=== PATIENT | female | born 1940 | race Caucasian/White ===

== ENCOUNTER 2017-12-14 17:21 | Inpatient (IN) | payer MEDICARE, OTHER ==
[~2017-12-14] VITALS: Ht 167.6 cm; Wt 72.6 kg
--- OUTSIDE RECORDS SUMMARY | 2017-12-14 17:27 | XMS REPORT ---
Author Author ARABELLA CURTIS [facility] eClinicalWorks Address Unknown Phone Unavailable Care Team Providers Care Advisory Intern Name Role Phone ARABELLA CURTIS CP Unavailable Allergies No Known Allergies Problems Problem Type Condition ICD-9 Code Onset Dates Condition Status Problem Seizure, NOS 780.39 Active Problem LBP [Low back pain] 724.2 Active Problem Common migraine without mention of intractable migraine 346.10 Active Problem Fatigue 780.79 Active Problem Insomnia 780.52 Active Problem Myofascial pain 729.0 Active Problem Unspecified vitamin D deficiency 268.9 Active Problem Joint pain, shoulder 719.41 Active Problem LONG-TERM USE MEDS NEC V58.69 Active Problem Osteoporosis 733.00 Active Problem 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
--- OUTSIDE RECORDS SUMMARY | 2017-12-14 17:28 | XMS REPORT ---
Author Author ARABELLA CURTIS [facility] eClinicalWorks Address Unknown Phone Unavailable Care Team Providers Care Grain Oilseed Or Pasture Farm Manager Name Role Phone ARABELLA CURTIS CP Unavailable Allergies No Known Allergies Problems Problem Type Condition Code Onset Dates Condition Status Problem HTN [Hypertension] 401.9 Active Problem Trochanteric bursitis, right hip M70.61 Active Problem Abnormal immunological finding in serum, unspecified R76.9 Active Problem Spinal stenosis, lumbar region M48.06 Active Problem Disorder of bone density and structure, unspecified M85.9 Active Problem Rheumatism, unspecified M79.0 Active Problem Polymyalgia rheumatica M35.3 Active Problem 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
--- OUTSIDE RECORDS SUMMARY | 2017-12-14 17:28 | XMS REPORT ---
Author Author IBETH BENZ Organization eClinicalWorks Address Unknown Phone Unavailable Care Team Providers Care Single Spindle Screw Machine Operator Name Role Phone IBETH BENZ CP Unavailable Allergies No Known Allergies Problems Problem Type Condition Code Onset Dates Condition Status Problem Seizure, [...] Active Problem Elevated ESR 790.1 Active Medications Medication Code System Code Instructions Start Date End Date Status Dosage loratadine [facility] [address] 10 mg orally once a day December 06, 2014 1 tab(s) Results No Known Results Summary Purpose eClinicalWorks Submission
--- OUTSIDE RECORDS SUMMARY | 2017-12-14 17:28 | XMS REPORT ---
Author Author ARABELLA CURTIS eClinical[employer] Address Unknown Phone Unavailable Care Team Providers Care Branch Lending Manager Name Role Phone ARABELLA CURTIS CP Unavailable Allergies, Adverse Reactions, Alerts Substance Reaction Event Type penicillin rash Drug Allergy Lomotil GI upset Drug Allergy Flexeril numbness Drug Allergy Problems Problem Type Condition Code Onset Dates Condition Status Assessment Rheumatism, unspecified M79.0 Active Problem HTN [Hypertension] 401.9 Active Assessment Spinal stenosis, lumbar region M48.06 Active Problem Trochanteric bursitis, right hip M70.61 Active Problem Abnormal immunological finding in serum, unspecified R76.9 Active Problem Spinal stenosis, lumbar region M48.06 Active Problem Disorder of bone density and structure, unspecified M85.9 Active Problem Rheumatism, unspecified M79.0 Active Problem Polymyalgia rheumatica M35.3 Active Problem Other skilled nursing (current) drug therapy Z79.899 Active Assessment Abnormal immunological finding in serum, unspecified R76.9 Active Assessment Disorder of bone density and structure, unspecified M85.9 Active Assessment Polymyalgia rheumatica M35.3 Active Assessment 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 Assessment Trochanteric bursitis, right hip M70.61 Active Medications Medication Code System Code Instructions Start Date End Date Status Dosage Depakote NDC 942 500 mg orally daily at bedtime December 27, 2014 1 tab(s ) Fish Oil NDC 0 1000 mg orally twice daily 1 capsule Os-Amadou 500 with D NDC 55006 500 mg-200 intl units orally 2 times a day Aug 21, 2010 1 tab(s) Viibryd NDC 488916 40 mg orally once a day by [place] 1 tab(s) Vasotec NDC 3418 5 TAKE ONE TABLET BY MOUTH EVERY DAY Probulin NDC 0 twice daily NEXIUM NDC 14249 40 mg orally once a day 1 cap(s) Tylenol Arthritis NDC 94358 500 mg orally PRN every 4-6 hrs for severe pain maximum 4 per day Aug 28, 2012 one Vyvanse NDC 033751 70 mg orally once a day (in the morning) 1 cap( s) multivitamin NDC 14852 Multiple Vitamins orally once a day 1 tab(s ) Feosol NDC 5086 325 mg orally twice a day January 27, 2014 1 tab(s) Vitamin D3 NDC 4871 1000 intl units orally once a day Aug 27, 2011 1 tab(s) Biofreeze NDC 039237 4% applied topically 2 times a day Jun 06, 2015 1 [place]im[place] clonazepam NDC 88997 0.5 mg orally prn hs January 16, 2015 1 Procedures Procedure Coding System Code Date Office Visit, estab pt, Level 4 CPT-4 73475 Jun 06, 2015 Vital Signs Date/Time: Jun 06, 2015 BMI 24.93 Index Weight 151 lbs Height 65.25 in Pain Scale - 0-10 Blood Pressure Diastolic 68 mm Hg Blood Pressure Systolic 122 mm Hg Results Name Result Date Reference Range Unit Abnormality Flag CBC WO DIFF Summary Purpose eClinicalWorks Submission
--- OUTSIDE RECORDS SUMMARY | 2017-12-14 17:28 | XMS REPORT ---
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
--- OUTSIDE RECORDS SUMMARY | 2017-12-14 17:28 | XMS REPORT ---
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
--- OUTSIDE RECORDS SUMMARY | 2017-12-14 17:28 | XMS REPORT ---
Author Author ARABELLA CURTIS [employer]ClinicalWorks Address Unknown Phone Unavailable Care Team Providers Care Tax Services Manager Name Role Phone ARABELLA CURTIS CP Unavailable Allergies No Known Allergies Problems Problem Type Condition Code Onset Dates Condition Status Problem Rheumatism, unspecified M79.0 Active Problem Other jail (current) drug therapy Z79.899 Active Problem Disorder of bone density and structure, unspecified M85.9 Active Problem HTN [Hypertension] 401.9 Active Problem Other specified disorders of bone density and structure, other site M85.88 Active Problem Other specified soft tissue disorders M79.89 Active Problem Other specified abnormal immunological findings in serum R76.8 Active Problem Abnormal immunological finding in serum, unspecified R76.9 Active Problem Polymyalgia rheumatica M35.3 Active Problem Spinal stenosis, lumbar region M48.06 Active Problem Trochanteric bursitis, right hip M70.61 Active Medications No Known Medications Results No Known Results Summary Purpose eClinicalWorks Submission
--- OUTSIDE RECORDS SUMMARY | 2017-12-14 17:28 | XMS REPORT ---
Author Author ARABELLA CURTIS [facility] eClinicalWorks Address Unknown Phone Unavailable Care Team Providers Care Aircraft Engineer Name Role Phone ARABELLA CURTIS CP [...] Instructions Start Date End Date Status Dosage clonazepam [facility] 57064 0.5 mg orally prn hs January 16, 2015 1 Results No Known Results Summary Purpose eClinicalWorks Submission
--- OUTSIDE RECORDS SUMMARY | 2017-12-14 17:28 | XMS REPORT ---
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 Problem Trochanteric bursitis, right hip M70.61 Active Problem Abnormal immunological finding in serum, unspecified R76.9 Active Problem Spinal stenosis, lumbar region M48.06 Active Problem Disorder of bone density and structure, unspecified M85.9 Active Problem Rheumatism, unspecified M79.0 Active Problem Polymyalgia rheumatica M35.3 Active Problem Other rn long term care (current) drug therapy Z79.899 Active Assessment Rheumatism, unspecified M79.0 Active Assessment Disorder of bone density and structure, unspecified M85.9 Active Assessment Spinal stenosis, lumbar region M48.06 Active Assessment Other rn long term care (current) drug therapy Z79.899 Active Assessment Abnormal immunological finding in serum, unspecified R76.9 Active Medications Medication Code System Code Instructions Start Date [place] [address] Multiple Vitamins orally once a day 1 tab(s ) Vasotec ND 3418 5 TAKE ONE TABLET BY MOUTH EVERY DAY Viibryd ND 133871 40 mg orally once a day by [place] 1 tab(s) Tylenol Arthritis NDC 41763 500 mg orally PRN every 4-6 hrs for severe pain maximum 4 per day Aug 28, 2012 one Probulin NDC 0 twice daily Vyvanse ND 335580 70 mg orally once a day (in the morning) 1 cap( s) Biofreeze ND 043980 4% applied topically 2 times a day Jun 06, 2015 1 [place] Vitamin D3 [place] [address] 1000 intl units orally once a day Aug 27, 2011 1 tab(s) clonazepam NDC 36181 0.5 mg orally prn hs January 16, 2015 1 Os-Amadou 500 with D NDC 98658 500 mg-200 intl units orally 2 times a day Aug 21, 2010 1 tab(s) Depakote NDC 942 500 mg orally daily at bedtime December 27, 2014 1 tab(s ) Feosol NDC 5086 325 mg orally twice a day January 27, 2014 1 tab(s) Fish Oil NDC 0 1000 mg orally twice daily 1 capsule NEXIUM NDC 72133 40 mg orally once a day 1 cap(s) Procedures Procedure Coding System Code Date Office Visit, estab pt, Level 4 CPT-4 57665 Sep 11, 2015 Vital Signs Date/Time: Sep 11, 2015 BMI 25.46 Index Weight 154.2 lbs Height 65.25 in Pain Scale . 0-10 Blood Pressure Diastolic 70 mm Hg Blood Pressure Systolic 112 mm Hg Results Name Result Date Reference Range Unit Abnormality Flag CBC WITH DIFF PROTOCOL ----BASOPHIL PERCENT 1 [id number] 0-2 % ----EOSINOPHIL PERCENT 3 [id number] 0-6 % ----LYMPHOCYTES, ABSOLUTE 2.1 [id number] 1.0-4.8 10*3/uL ----NEUTROPHILS, ABSOLUTE 4.5 [id number] 1.55-7.13 10*3/uL ----RDWCV 16.7 [id number] 11.5-14.5 % H ----EOSINOPHILS, ABSOLUTE 0.2 [id number] 0.0-0.65 10*3/uL ----PLATELET COUNT 309 [id number] 150-400 10*3/uL ----MONOCYTES, ABSOLUTE 0.5 [id number] 0.4-1.08 10*3/uL ----MCHC 33 25263738 31-37 g/dL ----MCH 27 [id number] 26-34 pg ----MCV 83 [id number] 81-99 fL ----NEUTROPHIL PERCENT 62 [id number] 36-66 % ----DIFF TYPE AUTOMATED DIFF [id number] ----MONOCYTE PERCENT 6 49655410 1-10 % ----LYMPHOCYTE PERCENTT 29 69366847 24-44 % ----BASOPHILS, ABSOLUTE 0.0 [id number] 0.0-0.11 10*3/uL ----WBC 7.3 20150911 4.3-10.8 10*3/uL ----RBC 4.70 20150911 4.20-5.40 10*6/uL ----HGB 12.8 20150911 12.0-16.0 g/dL ----HCT 39.0 20150911 37-47 % Summary Purpose eClinicalWorks Submission
--- OUTSIDE RECORDS SUMMARY | 2017-12-14 17:29 | XMS REPORT | Continuity of Care Document ---
Author Author [facility] Organization [facility] Address Unknown Phone Unavailable Allergies Active Description Code Type Severity Reaction Onset Reported/Identified Relationship to Patient Clinical Status Yes PENICILLINS 26 Drug Class N/A N/A 02/23/2014 Yes LATEX 27344 DRUG INGREDI N/A Dermatitis 08/20/2017 08/20/2017 Medications Medication Packaging Start Date Stop Date Route Dosage Sig enalapril maleate (VASOTEC) 5 mg tablet -- TAKE ONE TABLET BY MOUTH EVERY DAY tablet 01/30/2017 divalproex (DEPAKOTE ER) 500 mg 24 hr tablet -- TAKE ONE TABLET BY MOUTH DAILY tablet 06/20/2017 enalapril maleate (VASOTEC) 5 mg tablet -- TAKE ONE TABLET BY MOUTH DAILY tablet 10/29/2017 Problems Date Dx Coded Attending Type Code Diagnosis Diagnosed By 06/06/2015 KIRSTEN ARABELLA R A M35.3 Polymyalgia rheumatica 06/06/2015 LAURENATRE, ARABELLA R A R76.9 Abnormal immunological finding in serum, unspecified 06/06/2015 LAURENATRE ARABELLA R A M35.3 Polymyalgia rheumatica 06/06/2015 ATRE, ARABELLA R A R76.9 Abnormal immunological finding in serum, unspecified 07/04/2015 JOAQUIN MINER V [id number] Follow-up JOAQUIN MINER 09/11/2015 ATRE ARABELLA R A M06.4 Inflammatory polyarthropathy 09/11/2015 ATRE, ARABELLA R A M48.06 Spinal stenosis, lumbar region 09/11/2015 ATRE, ARABELLA R A R76.9 Abnormal immunological finding in serum, unspecified 09/11/2015 CHRIS CURTISJAY R A Z79.899 Other intermediate designer (current) drug therapy 09/11/2015 ATRE ARABELLA R A M06.4 Inflammatory polyarthropathy 09/11/2015 ATRE, ARABELLA R A M48.06 Spinal stenosis, lumbar region 09/11/2015 ATRE, ARABELLA R A R76.9 Abnormal immunological finding in serum, unspecified 09/11/2015 ATRE, ARABELLA R A Z79.899 Other intermediate designer (current) drug therapy 09/11/2015 LAURENATRE, ARABELLA R A M06.4 Inflammatory polyarthropathy 09/11/2015 ATRE, ARABELLA R A M48.06 Spinal stenosis, lumbar region 09/11/2015 ATRE, ARABELLA R A R76.9 Abnormal immunological finding in serum, unspecified 09/11/2015 ATRE, ARABELLA R A Z79.899 Other intermediate designer (current) drug therapy 12/12/2015 ATRE, ARABELLA R A M48.06 Spinal stenosis, lumbar region 12/12/2015 ATRE, ARABELLA R A M79.89 Other specified soft tissue disorders 12/12/2015 ATRE, ARABELLA R A R76.8 Other specified abnormal immunological findings in serum 11/18/2016 ATRE, ARABELLA R WORKING I10 Essential (primary) hypertension 11/18/2016 [facility], ARABELLA R WORKING M35.3 Polymyalgia rheumatica ([facility]) 11/18/2016 ATRE, ARABELLA R WORKING R76.8 Other specified abnormal immunological findings in serum 11/18/2016 ATRE, ARABELLA R WORKING Z79.899 Other intermediate designer (current) drug therapy 03/21/2017 ATRE, ARABELLA R WORKING M35.3 Polymyalgia rheumatica ([facility]) 08/01/2017 WORKING G89.29 Other chronic pain 08/01/2017 WORKING M17.0 Bilateral primary osteoarthritis of knee 08/01/2017 WORKING M35.3 Polymyalgia rheumatica ([facility]) 08/01/2017 WORKING M54.5 Low back pain 08/01/2017 WORKING M85.88 Other specified disorders of bone density and structure, other site 08/01/2017 WORKING R76.8 Other specified abnormal immunological findings in serum 08/01/2017 WORKING Z79.899 Other intermediate designer (current) drug therapy 08/08/2017 ATRE, ARABELLA R WORKING M35.3 Polymyalgia rheumatica ([facility]) 08/08/2017 ATRE, ARABELLA R WORKING R76.8 Other specified abnormal immunological findings in serum 08/08/2017 ARABELLA CURTIS WORKING Z79.899 Other prison (current) drug therapy Procedures Code Description Performed By Performed On ABC CBC WO DIFF 06/06/2015 CREAP CREATININE 06/06/2015 DSDNA DOUBLE STRANDED DNA ANTIBODY 06/06/2015 ESR ERYTHROCYTE SEDIMENTATION RATE 06/06/2015 CBC CBC WITH DIFF 09/11/2015 CREAP CREATININE WITH EGFR 09/11/2015 DSDNA DOUBLE STRANDED DNA ANTIBODY 09/11/2015 ESR ERYTHROCYTE SEDIMENTATION RATE 09/11/2015 UACR URINALYSIS REFLEX TO CULTURE 09/11/2015 CBC CBC WITH DIFF 09/11/2015 CREAP CREATININE WITH EGFR 09/11/2015 DSDNA DOUBLE STRANDED DNA ANTIBODY 09/11/2015 ESR ERYTHROCYTE SEDIMENTATION RATE 09/11/2015 UACR URINALYSIS REFLEX TO CULTURE 09/11/2015 ABC CBC WO DIFF 12/12/2015 CREAP CREATININE WITH EGFR 12/12/2015 DSDNA DOUBLE STRANDED DNA ANTIBODY 12/12/2015 ESR ERYTHROCYTE SEDIMENTATION RATE 12/12/2015 Results Test Result Range CBC WITH DIFF - 01/09/15 15:35 WBC 7.6 10*3/uL 4.3-10.8 RBC 4.58 10*6/uL 4.20-5.40 HGB 12.5 g/dL 12.0-16.0 HCT 37.8 % 37-47 MCV 83 fL 81-99 MCH 27 pg 26-34 MCHC 33 g/dL 31-37 PLATELET COUNT 313 10*3/uL 150-400 RDWCV 15.5 % 11.5-14.5 DIFF TYPE AUTOMATED DIFF NEUTROPHIL % 63 % 36-66 LYMPHOCYTE % 28 % 24-44 MONOCYTE % 8 % 1-10 EOSINOPHIL % 1 % 0-6 BASOPHIL % 0 % 0-2 ABS. NEUTROPHILS 4.7 10*3/uL 1.55-7.13 ABS. LYMPHOCYTES 2.1 10*3/uL 1.0-4.8 ABS. MONOCYTES 0.6 10*3/uL 0.4-1.08 ABS. EOSINOPHILS 0.1 10*3/uL 0.0-0.65 ABS. BASOPHILS 0.0 10*3/uL 0.0-0.11 ABSOLUTE NUCLEATED RBC 0.00 10*3/uL PERCENT NUCLEATED RBC 0 ERYTHROCYTE SEDIMENTATION RATE - 01/09/15 15:35 ERYTHROCYTE SEDIMENTATION RATE, AUTOMATED 16 mm/h 0-20 AST - 01/09/15 15:35 AST-SGOT 18 U/L 5-34 CREATININE - 01/09/15 15:35 CREATININE 0.9 mg/dL 0.6-1.1 GFR ESTIMATED NOT AFR/AM >60 GFR ESTIMATED IF AFR/AM >60 DOUBLE STRANDED DNA ANTIBODY - 01/09/15 15:35 DSDNA AB, IGG None Detected None Detected CBC WO DIFF - 06/06/15 15:16 WBC 6.6 10*3/uL 4.0-10.8 RBC 4.42 10*6/uL 4.20-5.40 HGB 11.9 g/dL 12.0-16.0 HCT 36.9 % 37-47 MCV 84 fL 81-99 MCH 27 pg 26-34 MCHC 32 g/dL 31-37 PLATELET COUNT 291 10*3/uL 150-400 RDWCV 15.6 % 11.5-14.5 CREATININE - 06/06/15 15:16 CREATININE 0.9 mg/dL 0.6-1.1 GFR ESTIMATED NOT AFR/AM >60 GFR ESTIMATED IF AFR/AM >60 ERYTHROCYTE SEDIMENTATION RATE - 06/06/15 15:16 ERYTHROCYTE SEDIMENTATION RATE, AUTOMATED 16 mm/h 0-20 DOUBLE STRANDED DNA ANTIBODY - 06/06/15 15:16 DSDNA AB, IGG None Detected None Detected OCCULT BLOOD X 3, STOOL - 06/25/15 00:01 OCCULT BLOOD, STOOL #1 negative OCCULT BLOOD, STOOL #2 Negative OCCULT BLOOD, STOOL #3 Negative CBC WITH AUTO DIFFERENTIAL - 08/31/15 12:05 BASOPHILS RELATIVE PERCENT 0.6 % 0.0-2.5 EOSINOPHILS RELATIVE PERCENT 1.3 % <=5.0 HEMATOCRIT 40.6 % 34.9-44.5 HEMOGLOBIN 13.0 g/dL 12.0-15.5 LYMPHOCYTES RELATIVE PERCENT 25.4 % 22.0-49.0 MEAN CORPUSCULAR HEMOGLOBIN 27.1 pg 26.0-34.0 MEAN CORPUSCULAR HEMOGLOBIN CONC 32.0 g/dL 31.0-37.0 MEAN CORPUSCULAR VOLUME 84.8 fL 81.6-98.3 MONOCYTES RELATIVE PERCENT 7.5 % 2.0-9.0 NEUTROPHILS RELATIVE PERCENT 65.2 % 40.0-75.0 PLATELET COUNT 296 10E9/L 150-450 RED BLOOD CELL COUNT 4.79 10E12/L 3.90-5.03 RED CELL DISTRIBUTION WIDTH 17.0 % 11.9-15.5 [id number] 7.1 10E9/L 3.5-10.5 1793967 1.80 10E9/L 0.90-2.90 1787082 0.50 10E9/L 0.30-0.90 2460379 0.10 10E9/L 0.05-0.50 6027238 4.60 10E9/L 1.70-7.00 7370943 0.00 10E9/L 0.00-0.30 CBC WITH AUTO DIFFERENTIAL - 01/09/16 14:27 BASOPHILS RELATIVE PERCENT 0.7 % 0.0-2.5 EOSINOPHILS RELATIVE PERCENT 1.7 % <=5.0 HEMATOCRIT 41.8 % 34.9-44.5 HEMOGLOBIN 13.4 g/dL 12.0-15.5 LYMPHOCYTES RELATIVE PERCENT 26.2 % 22.0-49.0 MEAN CORPUSCULAR HEMOGLOBIN 28.1 pg 26.0-34.0 MEAN CORPUSCULAR HEMOGLOBIN CONC 32.1 g/dL 31.0-37.0 MEAN CORPUSCULAR VOLUME 87.5 fL 81.6-98.3 MONOCYTES RELATIVE PERCENT 7.0 % 2.0-9.0 NEUTROPHILS RELATIVE PERCENT 64.4 % 40.0-75.0 PLATELET COUNT 326 10E9/L 150-450 RED BLOOD CELL COUNT 4.78 10E12/L 3.90-5.03 RED CELL DISTRIBUTION WIDTH 14.9 % 11.9-15.5 8638810 8.0 10E9/L 3.5-10.5 0131067 2.10 10E9/L 0.90-2.90 2565132 0.60 10E9/L 0.30-0.90 3360065 0.10 10E9/L 0.05-0.50 8419678 5.10 10E9/L 1.70-7.00 8853653 0.10 10E9/L 0.00-0.30 VITAMIN D2/D3 TOTAL - 01/09/16 14:27 VITAMIN D2/D3 TOTAL 35 ng/ml 30-100 URINALYSIS, REFLEX CULTURE IF NEEDED - 03/19/16 10:07 APPEARANCE Clear [none] BILIRUBIN UA Negative Negative COLOR Light-Yellow [none] GLUCOSE UA Negative Negative HEMOGLOBIN UA Negative Negative LEUKOCYTE ESTERASE UA Negative Negative NITRATE UA Negative Negative PH UA 8.0 5.0-8.0 PROTEIN UA Negative Negative RBC UA 0-3 0-3 SPECIFIC GRAVITY UA 1.007 1.003-1.030 UROBILINOGEN UA 0.2 mg/dL 0.2 WBC UA 0-3 /HPF 0-3 [id number] Negative Negative CBC WITH AUTO DIFFERENTIAL - 03/19/16 10:08 BASOPHILS RELATIVE PERCENT 0.6 % 0.0-2.5 EOSINOPHILS RELATIVE PERCENT 3.8 % <=5.0 HEMATOCRIT 39.0 % 34.9-44.5 HEMOGLOBIN 12.7 g/dL 12.0-15.5 LYMPHOCYTES RELATIVE PERCENT 25.8 % 22.0-49.0 MEAN CORPUSCULAR HEMOGLOBIN 28.3 pg 26.0-34.0 MEAN CORPUSCULAR HEMOGLOBIN CONC 32.7 g/dL 31.0-37.0 MEAN CORPUSCULAR VOLUME 86.5 fL 81.6-98.3 MONOCYTES RELATIVE PERCENT 7.7 % 2.0-9.0 NEUTROPHILS RELATIVE PERCENT 62.1 % 40.0-75.0 PLATELET COUNT 296 10E9/L 150-450 RED BLOOD CELL COUNT 4.51 10E12/L 3.90-5.03 RED CELL DISTRIBUTION WIDTH 14.8 % 11.9-15.5 4216488 7.2 10E9/L 3.5-10.5 3277308 1.90 10E9/L 0.90-2.90 7830007 0.60 10E9/L 0.30-0.90 5453348 0.30 10E9/L 0.05-0.50 9126432 4.50 10E9/L 1.70-7.00 9531148 0.00 10E9/L 0.00-0.30 TSH (REFLEX FREE T4 IF ABNORMAL) - 03/19/16 10:08 TSH 1.277 uIU/mL 0.400-4.000 CBC WITH DIFF - 11/18/16 14:45 WBC 9.59 10*3/uL 4.00-10.80 RBC 4.60 10*6/uL 4.20-5.40 HGB 13.2 g/dL 12.0-16.0 HCT 40.8 % 37.0-47.0 MCV 89 fL 81-99 MCH 29 pg 26.0-34.0 MCHC 32.4 g/dL 31.0-37.0 PLATELET COUNT 351 10*3/uL 150-400 RDWCV 14.5 % 11.5-14.5 DIFF TYPE AUTOMATED DIFF NEUTROPHIL % 68.9 % 36.0-66.0 LYMPHOCYTE % 21.4 % 24.0-44.0 MONOCYTE % 6.5 % 1.0-10.0 EOSINOPHIL % 2.4 % 0.0-6.0 BASOPHIL % 0.5 % 0.0-2.0 ABS. NEUTROPHILS 6.61 10*3/uL 1.55-7.13 ABS. LYMPHOCYTES 2.05 10*3/uL 1.00-4.80 ABS. MONOCYTES 0.62 10*3/uL 0.40-1.08 ABS. EOSINOPHILS 0.23 10*3/uL 0.00-0.65 ABS. BASOPHILS 0.05 10*3/uL 0.00-0.11 ABSOLUTE NUCLEATED RBC 0.00 10*3/uL 0.00 PERCENT NUCLEATED RBC 0.0 % 0.0 MPV 10.4 fL 9.4-12.3 RDW STANDARD DEVIATION 46.5 fL 36.4-46.3 GRANULOCYTE, IMMATURE, ABSOLUTE 0.0 10*3/uL 0.0-0.1 GRANULOCYTES, IMMATURE, PERCENT 0.3 % 0.0-0.5 ERYTHROCYTE SEDIMENTATION RATE - 11/18/16 14:45 ERYTHROCYTE SEDIMENTATION RATE, AUTOMATED 19 mm/h 0-20 COMPREHENSIVE METABOLIC PANEL - 11/18/16 14:45 POTASSIUM 4.5 mmol/L 3.5-5.1 CALCIUM 9.0 mg/dL 8.5-10.0 GLUCOSE 94 mg/dL 80-115 BUN 25 mg/dL 7-18 CREATININE 1.18 mg/dL 0.55-1.30 SODIUM 143 mmol/L 136-145 CHLORIDE 107 mmol/L 98-107 CO2 28 mmol/L 21-32 GFR ESTIMATED NOT AFR/AM 45 GFR ESTIMATED IF AFR/AM 54 ALT-SGPT 31 U/L 13-56 AST-SGOT 16 U/L 15-37 TOTAL PROTEIN,SERUM 7.2 g/dL 6.0-8.3 ALBUMIN 3.7 g/dL 3.4-5.0 ALKALINE PHOSPHATASE 84 U/L 45-117 TOTAL BILIRUBIN 0.4 mg/dL 0.2-1.0 ANION GAP 8 5-15 GLOBULIN, CALCULATED 3.5 g/dL A/G RATIO 1.1 ratio 1-1.8 ANTI-NUCLEAR AB, IGG SCREEN WITH REFLEX TO JESUSITA IFA TITER, DSDNA, SENIOR FOREMAN, MCKINNON, SSA, AND SSB ANTIBODI* - 11/18/16 14:45 ANTI-NUCLEAR ANTIBODY, IGG None Detected None Detected ERYTHROCYTE SEDIMENTATION RATE - 03/21/17 15:28 ERYTHROCYTE SEDIMENTATION RATE, AUTOMATED 18 mm/h 0-20 CBC WITH AUTO DIFFERENTIAL - 03/25/17 08:44 BASOPHILS RELATIVE PERCENT 1.0 % 0.0-2.5 EOSINOPHILS RELATIVE PERCENT 4.5 % <=5.0 HEMATOCRIT 44.2 % 34.9-44.5 HEMOGLOBIN 14.3 g/dL 12.0-15.5 LYMPHOCYTES RELATIVE PERCENT 27.8 % 22.0-49.0 MEAN CORPUSCULAR HEMOGLOBIN 29.0 pg 26.0-34.0 MEAN CORPUSCULAR HEMOGLOBIN CONC 32.4 g/dL 31.0-37.0 MEAN CORPUSCULAR VOLUME 89.7 fL 81.6-98.3 MONOCYTES RELATIVE PERCENT 7.3 % 2.0-9.0 NEUTROPHILS RELATIVE PERCENT 59.4 % 40.0-75.0 NUCLEATED RED BLOOD CELLS 0 /100 <=0 PLATELET COUNT 343 10E9/L 150-450 RED BLOOD CELL COUNT 4.93 10E12/L 3.90-5.03 RED CELL DISTRIBUTION WIDTH 14.2 % 11.9-15.5 7059864 7.2 10E9/L 3.5-10.5 6914198 1.99 10E9/L 0.90-2.90 2950359 0.52 10E9/L 0.30-0.90 8402734 0.32 10E9/L 0.05-0.50 1628541 4.25 10E9/L 1.70-7.00 6549663 0.07 10E9/L 0.00-0.30 9791544 0 % TSH (REFLEX FREE T4 IF ABNORMAL) - 03/25/17 08:44 TSH 2.642 uIU/mL 0.400-4.000 URINE CULTURE - 03/25/17 09:14 [id number] Sandy Count>07099 <713364 cfu/mL of at least 2 organisms suggestive of contamination CBC WITH DIFF - 08/08/17 11:42 WBC 6.52 10*3/uL 4.00-10.80 RBC 4.66 10*6/uL 4.20-5.40 HGB 13.1 g/dL 12.0-16.0 HCT 41.2 % 37.0-47.0 MCV 88 fL 81-99 MCH 28 pg 26.0-34.0 MCHC 31.8 g/dL 31.0-37.0 PLATELET COUNT 325 10*3/uL 150-400 RDWCV 14.0 % 11.5-14.5 DIFF TYPE AUTOMATED DIFF NEUTROPHIL % 62.0 % 36.0-66.0 LYMPHOCYTE % 26.2 % 24.0-44.0 MONOCYTE % 8.3 % 1.0-10.0 EOSINOPHIL % 2.6 % 0.0-6.0 BASOPHIL % 0.6 % 0.0-2.0 ABS. NEUTROPHILS 4.04 10*3/uL 1.55-7.13 ABS. LYMPHOCYTES 1.71 10*3/uL 1.00-4.80 ABS. MONOCYTES 0.54 10*3/uL 0.40-1.08 ABS. EOSINOPHILS 0.17 10*3/uL 0.00-0.65 ABS. BASOPHILS 0.04 10*3/uL 0.00-0.11 ABSOLUTE NUCLEATED RBC 0.00 10*3/uL 0.00 PERCENT NUCLEATED RBC 0.0 % 0.0 MPV 10.2 fL 9.4-12.3 RDW STANDARD DEVIATION 45.5 fL 36.4-46.3 GRANULOCYTE, IMMATURE, ABSOLUTE 0.02 10*3/uL 0.00-0.10 GRANULOCYTES, IMMATURE, PERCENT 0.3 % 0.0-0.5 ERYTHROCYTE SEDIMENTATION RATE - 08/08/17 11:42 ERYTHROCYTE SEDIMENTATION RATE, AUTOMATED 25 mm/h 0-20 DOUBLE STRANDED DNA ANTIBODY - 08/08/17 11:42 DSDNA AB, IGG None Detected None Detected Encounters ACCT No. Visit Date/Time Discharge Status Pt. Type Provider Facility Loc./Unit Complaint [id number] 03/21/2017 14:57:21 03/21/2017 23:59:59 [facility] Outpatient [facility] Medicine Clinic [facility] [id number] 03/07/2017 00:00:00 03/07/2017 23:59:59 CLS Outpatient [facility] - Neurology [facility] [id number] 01/29/2017 00:00:00 01/29/2017 23:59:59 CLS Outpatient [facility] Medicine [facility] [id number] 12/02/2016 00:00:00 12/02/2016 23:59:59 CLS Outpatient [facility] [id number] 11/28/2016 00:00:00 11/28/2016 23:59:59 CLS Outpatient [facility] Medicine [facility] [id number] 11/18/2016 14:10:18 11/18/2016 23:59:59 CLS Outpatient [facility] [id number] 10/28/2016 00:00:00 10/28/2016 23:59:59 CLS Outpatient [facility] [id number] 05/13/2016 12:54:53 05/13/2016 23:59:59 CLS Outpatient [facility] Neurology [facility] [id number] 03/11/2016 00:00:00 03/11/2016 23:59:59 CLS Outpatient [facility] Neurology [facility] [id number] 10/28/2017 00:00:00 10/28/2017 23:59:59 CLS Outpatient [facility] [id number] 10/28/2017 00:00:00 10/28/2017 23:59:59 CLS Outpatient [facility] [id number] 10/27/2017 00:00:00 10/27/2017 23:59:59 CLS Outpatient [facility] Medicine [facility] [id number] 08/26/2017 00:00:00 08/26/2017 23:59:59 CLS Outpatient [facility] Neurology [facility] [id number] 08/13/2017 00:00:00 08/13/2017 23:59:59 CLS Outpatient [facility] [id number] 08/01/2017 14:48:23 08/01/2017 23:59:59 CLS Outpatient [facility] Medicine [facility] [id number] 06/20/2017 00:00:00 06/20/2017 23:59:59 CLS Outpatient [facility] Medicine [facility] [id number] 03/21/2017 14:57:21 Document Registration [id number] 01/30/2017 08:18:14 Document Registration [id number] 11/18/2016 14:10:18 Document Registration [id number] 05/13/2016 12:54:53 Document Registration [id number] 12/02/2017 15:21:41 12/02/2017 23:59:59 CLS Outpatient KD SANTAMARIA [facility] EXPUR [id number] 08/20/2017 19:54:01 08/20/2017 23:59:59 CLS Outpatient [facility] URISHXR [id number] 08/20/2017 18:28:51 08/20/2017 23:59:59 CLS Outpatient KD SANTAMARIA [facility] EXPUR [id number] 08/06/2017 14:13:07 08/06/2017 23:59:59 CLS Outpatient [facility] HCOTXR [id number] 08/06/2017 12:31:47 08/06/2017 23:59:59 CLS Outpatient ALEJANDRO WESLEY [facility] [id number] 03/25/2017 08:39:28 03/25/2017 23:59:59 CLS Outpatient [facility] U29LA [id number] 03/24/2017 12:01:15 03/24/2017 23:59:59 CLS Outpatient CRISTIANA CAMP [facility] 901 [id number] 01/31/2017 09:40:01 01/31/2017 23:59:59 CLS Outpatient DANIELE YEPEZ [facility] KZOR [id number] 12/03/2016 10:27:24 12/03/2016 23:59:59 CLS Outpatient DANIELE YEPEZ [facility] KZOR [id number] 12/03/2016 10:19:00 12/03/2016 23:59:59 CLS Outpatient [facility] KZOR [id number] 11/29/2016 13:57:22 11/29/2016 23:59:59 CLS Outpatient [facility] 901XR [id number] 11/04/2016 13:53:09 11/04/2016 23:59:59 CLS Outpatient RADHA MONSALVE [place] [address] [id number] 10/14/2016 15:06:17 10/14/2016 23:59:59 CLS Outpatient [facility] [id number] 10/14/2016 15:04:35 10/14/2016 23:59:59 CLS Outpatient [facility] [id number] 09/18/2016 11:32:31 09/18/2016 23:59:59 CLS Outpatient WESLEY ALLEN [place] [address] [id number] 04/18/2016 10:50:24 04/18/2016 23:59:59 CLS Outpatient WESLEY ALLEN [place] [address] [id number] 03/22/2016 14:24:57 03/22/2016 23:59:59 CLS Outpatient CRISTIANA CAMP [place] [address] [id number] 03/19/2016 10:02:42 03/19/2016 23:59:59 CLS Outpatient [place] [address] [id number] 01/09/2016 14:23:22 01/09/2016 23:59:59 CLS Outpatient [place] [address] [id number] 01/03/2016 16:20:00 01/03/2016 23:59:59 CLS Outpatient [place] [address] [id number] 01/03/2016 15:53:15 01/03/2016 23:59:59 CLS Outpatient CRISTIANA CAMP [place] [address] [id number] 01/03/2016 14:07:08 01/03/2016 23:59:59 CLS Outpatient [facility] [id number] 11/15/2015 12:20:43 11/15/2015 23:59:59 CLS Outpatient FERMIN MICHAELS [facility] KZTHR [id number] 11/09/2015 12:41:19 11/09/2015 23:59:59 CLS Outpatient FERMIN MICHAELS [facility] KZTHR [id number] 08/31/2015 12:01:07 08/31/2015 23:59:59 CLS Outpatient [place] [address] [id number] 08/31/2015 10:58:39 08/31/2015 23:59:59 CLS Outpatient CRISTIANA CAMP [facility] 90 [id number] 07/10/2015 10:57:55 07/10/2015 23:59:59 CLS Outpatient [place] [address] [id number] 07/04/2015 14:49:26 07/04/2015 23:59:59 CLS Outpatient JOAQUIN MINER [facility] [id number] 11/03/2015 11:46:25 Document Registration [id number] 08/08/2017 11:34:41 08/08/2017 23:59:00 DIS Outpatient MHATRE, [facility] [id number] 03/21/2017 15:27:14 03/21/2017 23:59:00 DIS Outpatient MHATRE, [facility] [id number] 11/18/2016 14:43:46 11/18/2016 23:59:00 DIS Outpatient MHATRE, [facility] [id number] 12/12/2015 16:49:36 12/12/2015 23:59:00 DIS Outpatient MHATRE, [facility] FMWLAB [id number] 09/11/2015 15:52:48 09/11/2015 23:59:00 DIS Outpatient MHATRE, [facility] [id number] 06/06/2015 15:15:00 06/06/2015 23:59:00 DIS Outpatient MHATRE, [facility] [id number] 01/09/2015 15:24:50 01/09/2015 23:59:00 DIS Outpatient MHATRE, [facility] [id number] 12/29/2014 13:57:53 12/29/2014 23:59:00 DIS Outpatient ABI ALCALA MD [facility] [id number] 07/07/2014 13:38:35 07/07/2014 23:59:00 DIS Outpatient OMERO, [place] [facility] [id number] 05/24/2014 11:19:21 05/24/2014 23:59:00 DIS Outpatient SMITA RINALDI [place] [facility] [id number] 05/04/2014 15:47:29 05/04/2014 23:59:00 DIS Outpatient JUMANA [facility] [id number] 03/28/2014 10:37:31 03/28/2014 23:59:00 DIS Outpatient OMEROSHEKH KumariAR [facility] [id number] 02/23/2014 13:36:38 02/23/2014 23:59:00 DIS Outpatient CRISTIANA CAMP MD [facility] [id number] 02/02/2014 15:13:11 02/02/2014 23:59:00 DIS Outpatient TUYET [facility] [id number] 01/26/2014 11:40:43 01/26/2014 23:59:00 DIS Outpatient TUYET [facility] [id number] 12/29/2013 15:32:49 12/29/2013 23:59:00 DIS Outpatient JUMANA, [id number] 11/06/2017 07:15:58 ACT Document Registration
--- NOTE | 2017-12-14 17:44 | ED General ---
General Chief Complaint: Altered Mental Status Stated Complaint: LIGHT HEADED Source of Information: Patient, Family (son, rekha) Exam Limitations: Other (clinical condition) (JACQUE CARTER) History of Present Illness Date Seen by Provider: December 14, 2017 Time Seen by Provider: 17:28 Initial Comments The patient presents to the ER by private conveyance with her son with a chief complaint of acute confusion. She was driving down from [place] to see her son in [place], [place] and she called him because she was a little lost on the route and couldn't find a way at 11:30 this morning. He gave her some guidance and he thought that she sounded okay but he wasn't sure why she was in [facility] because that was quite a bit out of the way for her normal route. He says she has driven this route multiple times in the past come see him. She says that she felt perfectly fine this morning when she left. Police then found her on the side of the road where apparently she been sitting for several hours confused as to where she was in where she was going. The patient states she's had some sweats and chills today since getting on route but denies any dysuria, diarrhea or constipation, shortness of breath, chest pain, abdominal pain, ear pain or headache. She denies any significant medical history but she can't remember what medicines she is on or why. She cannot member her pharmacy. She is oriented to person and place but not time or situation. She says she's had a cough that is been nonproductive and denies smoking, drinking or using recreational drugs. (JACQUE CARTER) Timing/Duration: 12 Hours Severity: Moderate Associated Systoms: No Chest Pain; Fever/Chills; No Nausea/Vomiting, No Shortness of Air; Weakness (ANTONIO PLASCENCIA MD) Allergies and Home Medications Allergies Coded Allergies: Penicillins (Verified Allergy, Unknown, RASH, 12/14/17) Patient Home Medication List Home Medication List Reviewed: Yes (ANTONIO PLASCENCIA MD) Review of Systems Constitutional: see HPI, fever, weakness EENTM: no symptoms reported Respiratory: no symptoms reported; No cough, No short of breath Cardiovascular: No chest pain, No edema Gastrointestinal: No abdominal pain, No nausea, No vomiting Genitourinary: no symptoms reported Musculoskeletal: no symptoms reported Psychiatric/Neurological: See HPI; Denies Headache (ANTONIO PLASCENCIA MD) All Other Systems Reviewed Negative Unless Noted: Yes (ANTONIO PLASCENCIA MD) Past Dhewnem-Tjzgys-Efaqnx Hx Past Med/Social Hx: Reviewed Nursing Past Med/Soc Hx (ANTONIO PLASCENCIA MD) Patient Social History Alcohol Use: Denies Use Recreational Drug Use: No Smoking Status: Never a Smoker (ANTONIO PLASCENCIA MD) Past Medical History Surgeries: Yes Section Respiratory: No Cardiac: Yes Hypertension Neurological: No Gastrointestinal: Yes Gastroesophageal Reflux Musculoskeletal: No Endocrine: No Psychosocial: Yes ADD/ADHD (ANTONIO PLASCENCIA MD) Family Medical History Reviewed Nursing Family Hx (ANTONIO PLASCENCIA MD) No Pertinent Family Hx (ANTONIO PLASCENCIA MD) Physical Exam-Suspected Sepsis Physical Exam Vital Signs Vital Signs - First Documented 12/14/17 12/14/17 17:35 21:04 Temp 100.8 Pulse 93 Resp 16 B/P (MAP) 108/39 (62) Pulse Ox 94 O2 Delivery Room Air (ANTONIO PLASCENCIA MD) Vital Signs Capillary Refill : (JACQUE CARTER) General Appearance: No Apparent Distress, WD/WN HEENT: PERRL/EOMI, Pharynx Normal Neck: Non Tender, Supple Respiratory: Lungs Clear, Normal Breath Sounds Cardiovascular: Regular Rate, Rhythm, No Murmur Gastrointestinal: Non Tender, Soft Back: Normal Inspection, No CVA Tenderness, No Vertebral Tenderness Extremity: Normal Range of Motion, Non Tender Neurologic/Psychiatric: Alert, Disoriented (situation and time) Skin: normal color, warm/dry (ANTONIO PLASCENCIA MD) Focused Exam Lactate Level 12/14/17 17:40: Lactic Acid Level 0.89 (ANTONIO PLASCENCIA MD) Lactic Acid Level (ANTONIO PLASCENCIA MD) Progress/Results/Core Measures Suspected Sepsis SIRS Temperature: Pulse: Respiratory Rate: Laboratory Tests 12/14/17 17:40: White Blood Count 16.8H Blood Pressure / Mean: 12/14/17 17:40: Laboratory Tests 12/14/17 17:40: Platelet Count 373 (JACQUE CARTER) Results/Orders Lab Results Laboratory Tests Test 12/14/17 17:31 12/14/17 17:40 12/14/17 19:34 Range/Units Glucometer 124 H 70-110 MG/DL White Blood Count 16.8 H 4.3-11.0 10^3/uL Red Blood Count 4.50 4.35-5.85 10^6/uL Hemoglobin 13.1 11.5-16.0 G/DL Hematocrit 38 35-52 % Mean Corpuscular Volume 85 80-99 FL Mean Corpuscular Hemoglobin 29 25-34 PG Mean Corpuscular Hemoglobin Concent 34 32-36 G/DL Red Cell Distribution Width 14.6 H 10.0-14.5 % Platelet Count 373 130-400 10^3/uL Mean Platelet Volume 9.9 7.4-10.4 FL Neutrophils (%) (Auto) 84 H 42-75 % Lymphocytes (%) (Auto) 8 L 12-44 % Monocytes (%) (Auto) 7 0-12 % Eosinophils (%) (Auto) 0 0-10 % Basophils (%) (Auto) 0 0-10 % Neutrophils # (Auto) 14.1 H 1.8-7.8 X 10^3 Lymphocytes # (Auto) 1.4 1.0-4.0 X 10^3 Monocytes # (Auto) 1.1 H 0.0-1.0 X 10^3 Eosinophils # (Auto) 0.0 0.0-0.3 10^3/uL Basophils # (Auto) 0.1 0.0-0.1 10^3/uL Neutrophils % (Manual) 78 % Lymphocytes % (Manual) 11 % Monocytes % (Manual) 11 % Blood Morphology Comment NORMAL Prothrombin Time 13.9 12.2-14.7 SEC INR Comment 1.1 0.8-1.4 Activated Partial Thromboplast Time 30 24-35 SEC Sodium Level 136 135-145 MMOL/L Potassium Level 4.2 3.6-5.0 MMOL/L Chloride Level 101 98-107 MMOL/L Carbon Dioxide Level 22 21-32 MMOL/L Anion Gap 13 5-14 MMOL/L Blood Urea Nitrogen 15 7-18 MG/DL Creatinine 1.09 0.60-1.30 MG/DL Estimat Glomerular Filtration Rate 49 BUN/Creatinine Ratio 14 Glucose Level 129 H 70-105 MG/DL Lactic Acid Level 0.89 0.50-2.00 MMOL/L Calcium Level 9.5 8.5-10.1 MG/DL Total Bilirubin 0.6 0.1-1.0 MG/DL Aspartate Amino Transf (AST/SGOT) 16 5-34 U/L Alanine Aminotransferase (ALT/SGPT) 16 0-55 U/L Alkaline Phosphatase 87 40-136 U/L Troponin I < 0.30 <0.30 NG/ML Total Protein 7.2 6.4-8.2 GM/DL Albumin 3.9 3.2-4.5 GM/DL Urine Color YELLOW Urine Clarity SLIGHTLY CLOUDY Urine pH 7 5-9 Urine Specific [place] 1.005 L 1.016-1.022 Urine Protein 2+ H NEGATIVE Urine Glucose (UA) NEGATIVE NEGATIVE Urine Ketones 1+ H NEGATIVE Urine Nitrite NEGATIVE NEGATIVE Urine Bilirubin NEGATIVE NEGATIVE Urine Urobilinogen 1 NORMAL MG/DL Urine Leukocyte Esterase 3+ H NEGATIVE Urine RBC (Auto) 2+ H NEGATIVE Urine RBC RARE /HPF Urine WBC 50-100 H /HPF Urine Squamous Epithelial Cells 0-2 /HPF Urine Renal Epithelial Cells NONE /HPF Urine Crystals NONE /LPF Urine Bacteria FEW H /HPF Urine Casts NONE /LPF Urine Mucus SMALL H /LPF Urine Culture Indicated YES (ANTONIO PLASCENCIA MD) My Orders Orders - ANTONIO PLASCENCIA MD Ceftriaxone Injection (Rocephin Injectio (12/14/17 20:30) (ANTONIO PLASCENCIA MD) Medications Given in ED Current Medications Medications Dose Ordered Sig/Adele Route Start Time Stop Time Status Last Admin Dose Admin Acetaminophen 1,000 mg ONCE PRN PO 12/14/17 17:45 12/14/17 18:12 DC 12/14/17 18:11 1,000 MG Ceftriaxone Sodium 1000 mg/ Sodium Chloride 50 ml @ 100 mls/hr ONCE ONCE IV 12/14/17 20:30 12/14/17 20:59 DC 12/14/17 20:38 100 MLS/HR Sodium Chloride 1,500 ml @ 1,500 mls/hr PRN PRN IV 12/14/17 17:45 12/14/17 21:31 DC 12/14/17 18:12 1,500 MLS/HR (ANTONIO PLASCENCIA MD) Vital Signs/I&O 12/14/17 12/14/17 12/14/17 12/14/17 17:35 20:59 21:04 21:30 Temp 100.8 99.1 97.2 Pulse 93 92 81 Resp 16 19 18 B/P (MAP) 108/39 (62) 128/72 123/67 (85) Pulse Ox 94 97 96 96 O2 Delivery Room Air Room Air 12/15/17 00:00 Temp 98.6 Pulse 78 Resp 16 B/P (MAP) 97/57 (70) Pulse Ox 96 O2 Delivery Room Air (ANTONIO PLASCENCIA MD) Vital Signs/I&O Capillary Refill : (JACQUE CARTER) Progress Note : Time: 18:05 Progress Note Patient Presents with Sirs vital signs, a blood sugar of 124 and appears to be delirious and a pharmacy review demonstrating a medication history of Vyvanse, olanzapine and Viibryd. Concern for delirium but we'll go ahead and get a CT of her head however she has a last known well time it would be even before 11:30 when her son talked her and she was lost so she is well outside the window for TPA even if it was a stroke. She hasn't unremarkable neurologic exam except for confusion. She was drinking soda and walking in under her own power from the lobby and has not had any choking incidences. Patient's history and initial labs of elevated white count 16,000 as well as negative CT of the head were discussed with Dr. Plascencia and care has been passed off to his capable hands. (JACQUE CARTER) Progress Note : Progress Note 1830: I did reevaluate the patient. She does still seem confused with regard to what happened today. She is moving all extremities and having no focal deficits. She knows herself and her son where she is currently but is confused to situation. She has IV fluids running. We are pending labs. CT and chest x- ray are negative. 2029: Labs are complete and UA is complete. There was delay related to wait time to get urine from the patient. She does have rather significant urinary tract infection. She remained somewhat confused. I discussed the case with Dr. Morrell at 2019 and he has accepted the patient for admission, inpatient status related to urinary tract infection and continued delirium. Patient and her son both agree with plan. (ANTONIO PLASCENCIA MD) ECG Initial ECG Impression Date: December 14, 2017 Initial ECG Impression Time: 17:50 Initial ECG Rate: 93 Initial ECG Rhythm: Normal Sinus Initial ECG Intervals: Normal Initial ECG Impression: Normal, Nonspecific Changes Initial ECG Comparisson: No Previous ECG Available Comment No atrial fibrillation or ST segment elevation or depression. (JACQUE CARTER) Diagnostic Imaging Diagonstic Imaging: Xray (2v) Plain Films/CT/US/NM/MRI: chest Reviewed: Reviewed by Me Diagonstic Imaging: CT Plain Films/CT/US/NM/MRI: head (without contrast) Comments No intracranial hemorrhage, tumor, midline shift or fracture. Reviewed: Reviewed by Me (JACQUE CARTER) Comments NAME: ANGELINA MCGOVERN MED REC#: [id number] PT STATUS: REG ER : 1940 PHYSICIAN: JACQUE CARTER MD ADMIT DATE: 12/14/17/ER Signed Date of Exam: 12/14/17 CHEST PA/LAT (2 VIEW) INDICATION: Altered mental status. EXAMINATION: PA and lateral chest. FINDINGS: Heart size and pulmonary vascularity are normal. Lungs are clear. There are no effusions or pneumothoraces. IMPRESSION: Negative chest. Dictated by: Dictated on workstation # [id number] Dict: 12/14/171806 Trans: 12/14/171818 Interpreted by: ANTONIO LUTZ MD Electronically signed by: ANTONIO LUTZ MD 12/14/171818 Comments [place]IA [place], [place] NAME: ANGELINA MCGOVERN MED REC#: [id number] PT STATUS: REG ER : 1940 PHYSICIAN: JACQUE CARTER MD ADMIT DATE: 12/14/17/ER Draft Date of Exam:12/14/17 CT HEAD WO PROCEDURE: CT head without contrast. TECHNIQUE: Multiple contiguous axial images were obtained through the brain without the use of intravenous contrast. INDICATION: Altered mental status. FINDINGS: The ventricles are normal in size, shape and position. There are no masses or hemorrhages. There are no extra-axial fluid collections. IMPRESSION: Negative CT head. Dictated on workstation # [id number] Dict: 12/14/171805 Trans: 12/14/171806 [facility] [id number] Interpreted by: ANTONIO LUTZ MD Electronically signed by: (ANTONIO PLASCENCIA MD) Departure Communication (Admissions) Time/Spoke to Admitting Phy: 20:20 (ANTONIO PLASCENCIA MD) Impression Primary Impression: Urinary tract infection Qualified Codes: N30.00 - Acute cystitis without hematuria Additional Impression: Delirium Disposition: ADMITTED INPATIENT Condition: Stable Admissions Decision to Admit Reason: Admit from ER (Trauma) Decision to Admit/Date: December 14, 2017 Time/Decision to Admit Time: 20:20 (ANTONIO PLASCENCIA MD) JACQUE CARTER December 14, 2017 17:44 ANTONIO PLASCENCIA MD December 14, 2017 18:23
[2017-12-14] MEDS ORDERED: VILA40TA PO (17:45)
[2017-12-14] MEDS ORDERED: LISD70CA3 PO (17:45)
[2017-12-14] MEDS ORDERED: ACETAMINOPHEN 500 MG TAB (TYLENOL) PO PRN ×2 (17:45→21:45)
[2017-12-14] MEDS ORDERED: NS IV 1000 ML 1,500 ML IV PRN (17:45)
[2017-12-14] MEDS ORDERED: OLAN5TAB25 PO (17:45)
[2017-12-14] MEDS ORDERED: DIVA500T15 PO (17:45)
[2017-12-14] MEDS ORDERED: ENAL5TAB PO (17:45)
[2017-12-14 17:58] LABS: BASOPHILS # (AUTO) 0.1 10^3/uL (0.0-0.1); BASOPHILS % (AUTO) 0 % (0-10); EOSINOPHILS % (AUTO) 0 % (0-10); HEMATOCRIT 38 % (35-52); HEMOGLOBIN 13.1 G/DL (11.5-16.0); LYMPHOCYTES # (AUTO) 1.4 X 10^3 (1.0-4.0); LYMPHOCYTES % (AUTO) 8 % (12-44); MEAN CORPUSCULAR HEMOGLOBIN 29 PG (25-34); MEAN CORPUSCULAR HGB CONC 34 G/DL (32-36); MEAN CORPUSCULAR VOLUME 85 FL (80-99); MEAN PLATELET VOLUME 9.9 FL (7.4-10.4); MONOCYTES # (AUTO) 1.1 X 10^3 (0.0-1.0); MONOCYTES % (AUTO) 7 % (0-12); NEUTROPHILS # (AUTO) 14.1 X 10^3 (1.8-7.8); NEUTROPHILS % (AUTO) 84 % (42-75); PLATELET COUNT 373 10^3/uL (130-400); RED CELL DISTRIBUTION WIDTH 14.6 % (10.0-14.5); WHITE BLOOD COUNT 16.8 10^3/uL (4.3-11.0)
--- NOTE | 2017-12-14 18:08 | Diagnostic Imaging Report ---
PROCEDURE: CT head without contrast. TECHNIQUE: Multiple contiguous axial images were obtained through the brain without the use of intravenous contrast. INDICATION: Altered mental status. FINDINGS: The ventricles are normal in size, shape and position. There are no masses or hemorrhages. There are no extra-axial fluid collections. IMPRESSION: Negative CT head. Dictated by: Dictated on workstation # [id number]
--- NOTE | 2017-12-14 18:08 | Diagnostic Imaging Report ---
INDICATION: Altered mental status. EXAMINATION: PA and lateral chest. FINDINGS: Heart size and pulmonary vascularity are normal. Lungs are clear. There are no effusions or pneumothoraces. IMPRESSION: Negative chest. Dictated by: Dictated on workstation # [id number]
[2017-12-14 18:09] LABS: INR 1.1 (0.8-1.4); PROTHROMBIN TIME PATIENT 13.9 SEC (12.2-14.7)
[2017-12-14 18:17] LABS: ALANINE AMINOTRANSFERASE 16 U/L (0-55); ALBUMIN 3.9 GM/DL (3.2-4.5); ALKALINE PHOSPHATASE 87 U/L (40-136); BILIRUBIN,TOTAL 0.6 MG/DL (0.1-1.0); BUN/CREATININE RATIO 14; CALCIUM 9.5 MG/DL (8.5-10.1); CARBON DIOXIDE 22 MMOL/L (21-32); CHLORIDE 101 MMOL/L (98-107); CREATININE SERUM 1.09 MG/DL (0.60-1.30); GFR ESTIMATED 49; GLUCOSE 129 MG/DL (70-105); POTASSIUM 4.2 MMOL/L (3.6-5.0); SODIUM 136 MMOL/L (135-145); TOTAL PROTEIN 7.2 GM/DL (6.4-8.2)
[2017-12-14 18:23] LABS: LYMPHOCYTES % (MANUAL) 11 %; MONOCYTES % (MANUAL) 11 %; NEUTROPHILS % (MANUAL) 78 %; RBC MORPH NORMAL
[2017-12-14 19:44] LABS: BILIRUBIN,URINE NEGATIVE (NEGATIVE); CLARITY,URINE SLIGHTLY CLOUDY; COLOR,URINE YELLOW; GLUCOSE, URINE (UA) NEGATIVE (NEGATIVE); KETONES,URINE 1+ (NEGATIVE); LEUKOCYTE ESTERASE ,URINE 3+ (NEGATIVE); NITRITE,URINE NEGATIVE (NEGATIVE); PH,URINE 7 (5-9); PROTEIN,URINE 2+ (NEGATIVE); UROBILINOGEN,URINE 1 MG/DL (NORMAL)
[2017-12-14 20:07] LABS: BACTERIA,URINE FEW /HPF; RBC,URINE RARE /HPF; SQUAMOUS EPITHELIAL CELL,UR 0-2 /HPF; WBC,URINE 50-100 /HPF
[2017-12-14] MEDS ORDERED: cefTRIAXone INJECTION 1,000 MG in NS (IVPB) 50 ML IV ONE (20:30)
--- OUTSIDE RECORDS SUMMARY | 2017-12-14 21:19 | XMS REPORT | Continuity of Care Document ---
Author Author [facility] Organization [facility] Address Unknown Phone Unavailable Allergies Active Description Code Type Severity Reaction Onset Reported/Identified Relationship to Patient Clinical Status Yes PENICILLINS 26 Drug Class N/A N/A 02/23/2014 Yes LATEX 04408 DRUG INGREDI N/A Dermatitis 08/20/2017 08/20/2017 Medications [...] in serum, unspecified 07/04/2015 JOAQUIN MINER V [id number] Follow-up JOAQUNI MINER 09/11/2015 ATRE ARABELLA R A M06.4 Inflammatory polyarthropathy 09/11/2015 ATRE, ARABELLA R A M48.06 Spinal stenosis, lumbar region 09/11/2015 ATRE, ARABELLA R A R76.9 Abnormal immunological finding in serum, unspecified 09/11/2015 CHRIS CURTISJAY R A Z79.899 Other oysterman (current) drug therapy 09/11/2015 ATRE ARABELLA R A M06.4 Inflammatory polyarthropathy 09/11/2015 ATRE, ARABELLA R A M48.06 Spinal stenosis, lumbar region 09/11/2015 ATRE, ARABELLA R A R76.9 Abnormal immunological finding in serum, unspecified 09/11/2015 ATRE, ARABELLA R A Z79.899 Other oysterman (current) drug therapy 09/11/2015 LAURENATRE, ARABELLA R A M06.4 Inflammatory polyarthropathy 09/11/2015 ATRE, ARABELLA R A M48.06 Spinal stenosis, lumbar region 09/11/2015 ATRE, ARABELLA R A R76.9 Abnormal immunological finding in serum, unspecified 09/11/2015 ATRE, ARABELLA R A Z79.899 Other oysterman (current) drug therapy 12/12/2015 ATRE, ARABELLA R A M48.06 Spinal stenosis, lumbar region 12/12/2015 ATRE, ARABELLA R A M79.89 Other specified soft tissue disorders 12/12/2015 ATRE, ARABELLA R A R76.8 Other specified abnormal immunological findings in serum 11/18/2016 ATRE, ARABELLA R WORKING I10 Essential (primary) hypertension 11/18/2016 [facility], ARABELLA R WORKING M35.3 Polymyalgia rheumatica ([facility] 11/18/2016 ATRE, ARABELLA R WORKING R76.8 Other specified abnormal immunological findings in serum 11/18/2016 ATRE, ARABELLA R WORKING Z79.899 Other oysterman (current) drug therapy 03/21/2017 ATRE, AARBELLA R WORKING M35.3 Polymyalgia rheumatica ([facility] 08/01/2017 WORKING G89.29 Other chronic pain 08/01/2017 WORKING M17.0 Bilateral primary osteoarthritis of knee 08/01/2017 WORKING M35.3 Polymyalgia rheumatica ([facility] 08/01/2017 WORKING M54.5 Low back pain 08/01/2017 WORKING M85.88 Other specified disorders of bone density and structure, other site 08/01/2017 WORKING R76.8 Other specified abnormal immunological findings in serum 08/01/2017 WORKING Z79.899 Other oysterman (current) drug therapy 08/08/2017 ATRE, ARABELLA R WORKING M35.3 Polymyalgia rheumatica ([facility] 08/08/2017 ATRE, ARABELLA R WORKING R76.8 Other specified abnormal immunological findings in serum 08/08/2017 ARABELLA CURTIS WORKING Z79.899 Other chcf (current) drug therapy Procedures Code Description Performed [...] RED CELL DISTRIBUTION WIDTH 17.0 % 11.9-15.5 [id number] 7.1 10E9/L 3.5-10.5 4921386 1.80 10E9/L 0.90-2.90 0963483 0.50 10E9/L 0.30-0.90 7186585 0.10 10E9/L 0.05-0.50 3051365 4.60 10E9/L 1.70-7.00 4251969 0.00 10E9/L 0.00-0.30 CBC WITH AUTO DIFFERENTIAL [...] RED CELL DISTRIBUTION WIDTH 14.9 % 11.9-15.5 9022377 8.0 10E9/L 3.5-10.5 0088373 2.10 10E9/L 0.90-2.90 3042765 0.60 10E9/L 0.30-0.90 6817575 0.10 10E9/L 0.05-0.50 9895061 5.10 10E9/L 1.70-7.00 3435776 0.10 10E9/L 0.00-0.30 VITAMIN D2/D3 TOTAL - [...] mg/dL 0.2 WBC UA 0-3 /HPF 0-3 3322730 Negative Negative CBC WITH AUTO DIFFERENTIAL - [...] RED CELL DISTRIBUTION WIDTH 14.8 % 11.9-15.5 5780851 7.2 10E9/L 3.5-10.5 8614703 1.90 10E9/L 0.90-2.90 4839803 0.60 10E9/L 0.30-0.90 1415405 0.30 10E9/L 0.05-0.50 6188002 4.50 10E9/L 1.70-7.00 8082574 0.00 10E9/L 0.00-0.30 TSH (REFLEX FREE T4 [...] WITH REFLEX TO JESUSITA IFA TITER, DSDNA, MEN'S CUST[employer] HA[employer] PIECE CONSULTANT, MCKINNON, SSA, AND SSB ANTIBODI* - 11/18/16 [...] RED CELL DISTRIBUTION WIDTH 14.2 % 11.9-15.5 4190965 7.2 10E9/L 3.5-10.5 2674400 1.99 10E9/L 0.90-2.90 5205021 0.52 10E9/L 0.30-0.90 6035778 0.32 10E9/L 0.05-0.50 2728038 4.25 10E9/L 1.70-7.00 5224789 0.07 10E9/L 0.00-0.30 1383234 0 % TSH (REFLEX FREE T4 IF ABNORMAL) - 03/25/17 08:44 TSH 2.642 uIU/mL 0.400-4.000 URINE CULTURE - 03/25/17 09:14 [id number] [place] Count>61159 <538421 cfu/mL of at least 2 organisms suggestive [...] DSDNA AB, IGG None Detected None Detected Capillary blood glucose measurement by glucometer (mass/volume) - 12/14/17 17: 31 Capillary blood glucose measurement by glucometer (mass/volume) 124 mg/dL 70-110 Complete blood count (CBC) with automated white blood cell (WBC) differential - 12/14/17 17:40 Blood leukocytes automated count (number/volume) 16.8 10*3/uL 4.3-11.0 Blood erythrocytes automated count (number/volume) 4.50 10*6/uL 4.35-5.85 Venous blood hemoglobin measurement (mass/volume) 13.1 g/dL 11.5-16.0 Blood hematocrit (volume fraction) 38 % 35-52 Automated erythrocyte mean corpuscular volume 85 [foz_us] 80-99 Automated erythrocyte mean corpuscular hemoglobin (mass per erythrocyte) 29 pg 25-34 Automated erythrocyte mean corpuscular hemoglobin concentration measurement ( mass/volume) 34 g/dL 32-36 Automated erythrocyte distribution width ratio 14.6 % 10.0-14.5 Automated blood platelet count (count/volume) 373 10*3/uL 130-400 Automated blood platelet mean volume measurement 9.9 [foz_us] 7.4-10.4 Automated blood neutrophils/100 leukocytes 84 % 42-75 Automated blood lymphocytes/100 leukocytes 8 % 12-44 Blood monocytes/100 leukocytes 7 % 0-12 Automated blood eosinophils/100 leukocytes 0 % 0-10 Automated blood basophils/100 leukocytes 0 % 0-10 Blood neutrophils automated count (number/volume) 14.1 10*3 1.8-7.8 Blood lymphocytes automated count (number/volume) 1.4 10*3 1.0-4.0 Blood monocytes automated count (number/volume) 1.1 10*3 0.0-1.0 Automated eosinophil count 0.0 10*3/uL 0.0-0.3 Automated blood basophil count (count/volume) 0.1 10*3/uL 0.0-0.1 Blood lactic acid measurement (moles/volume) - 12/14/17 17:40 Blood lactic acid measurement (moles/volume) 0.89 mmol/L 0.50-2.00 PT panel in platelet poor plasma by coagulation assay - 12/14/17 17:40 Prothrombin time (PT) in platelet poor plasma by coagulation assay 13.9 s 12.2-14.7 INR in platelet poor plasma or blood by coagulation assay 1.1 0.8-1.4 Activated partial thromboplastin time (aPTT) in platelet poor plasma bycoagulation assay - 12/14/17 17:40 Activated partial thromboplastin time (aPTT) in platelet poor plasma bycoagulation assay 30 s 24-35 Comprehensive metabolic panel - 12/14/17 17:40 Serum or plasma sodium measurement (moles/volume) 136 mmol/L 135-145 Serum or plasma potassium measurement (moles/volume) 4.2 mmol/L 3.6-5.0 Serum or plasma chloride measurement (moles/volume) 101 mmol/L 98-107 Carbon dioxide 22 mmol/L 21-32 Serum or plasma anion gap determination (moles/volume) 13 mmol/L 5-14 Serum or plasma urea nitrogen measurement (mass/volume) 15 mg/dL 7-18 Serum or plasma creatinine measurement (mass/volume) 1.09 mg/dL 0.60-1.30 Serum or plasma urea nitrogen/creatinine mass ratio 14 NRG Serum or plasma creatinine measurement with calculation of estimated glomerular filtration rate 49 NRG Serum or plasma glucose measurement (mass/volume) 129 mg/dL 70-105 Serum or plasma calcium measurement (mass/volume) 9.5 mg/dL 8.5-10.1 Serum or plasma total bilirubin measurement (mass/volume) 0.6 mg/dL 0.1-1.0 Serum or plasma alkaline phosphatase measurement (enzymatic activity/volume) 87 U/L 40-136 Serum or plasma aspartate aminotransferase measurement (enzymatic activity/ volume) 16 U/L 5-34 Serum or plasma alanine aminotransferase measurement (enzymatic activity/volume ) 16 U/L 0-55 Serum or plasma protein measurement (mass/volume) 7.2 g/dL 6.4-8.2 Serum or plasma albumin measurement (mass/volume) 3.9 g/dL 3.2-4.5 Blood manual differential performed detection - 12/14/17 17:40 Blood monocytes/100 leukocytes 11 % NRG Manual blood segmented neutrophils/100 leukocytes 78 % NRG Manual blood lymphocytes/100 leukocytes 11 % NRG Blood erythrocyte morphology finding identification NORMAL NRG Serum or plasma troponin i.cardiac measurement (mass/volume) - 12/14/17 17:40 Serum or plasma troponin i.cardiac measurement (mass/volume) < ng/ mL <0.30 Complete urinalysis with reflex to culture - 12/14/17 19:34 Urine color determination YELLOW NRG Urine clarity determination SLIGHTLY CLOUDY NRG Urine pH measurement by test strip 7 5-9 Specific gravity of urine by test strip 1.005 1.016- 1.022 Urine protein assay by test strip, semi-quantitative 2+ NEGATIVE Urine glucose detection by automated test strip NEGATIVE NEGATIVE Erythrocytes detection in urine sediment by light microscopy 2+ NEGATIVE Urine ketones detection by automated test strip 1+ NEGATIVE Urine nitrite detection by test strip NEGATIVE NEGATIVE Urine total bilirubin detection by test strip NEGATIVE NEGATIVE Urine urobilinogen measurement by automated test strip (mass/volume) 1 mg/dL NORMAL Urine leukocyte esterase detection by dipstick 3+ NEGATIVE Automated urine sediment erythrocyte count by microscopy (number/high power field) RARE NRG Automated urine sediment leukocyte count by microscopy (number/high power field ) [HPF] NRG Bacteria detection in urine sediment by light microscopy FEW NRG Squamous epithelial cells detection in urine sediment by light microscopy 0-2 NRG Crystals detection in urine sediment by light microscopy NONE NRG Casts detection in urine sediment by light microscopy NONE NRG Mucus detection in urine sediment by light microscopy SMALL NRG Complete urinalysis with reflex to culture YES NRG Renal epithelial cells detection in urine sediment by light microscopy NONE NRG Encounters ACCT No. Visit Date/Time Discharge Status Pt. Type Provider Facility Loc./Unit Complaint [id number] 03/21/2017 14:57:21 03/21/2017 23:59:59 [facility] Outpatient [facility] [id number] 03/07/2017 00:00:00 03/07/2017 23:59:59 [facility] Outpatient [facility] - Neurology [facility] [id number] 01/29/2017 00:00:00 01/29/2017 23:59:59 [facility] Outpatient [facility] [id number] 12/02/2016 00:00:00 12/02/2016 23:59:59 [facility] Outpatient [facility] [id number] 11/28/2016 00:00:00 11/28/2016 23:59:59 [facility] Outpatient [facility] [id number] 11/18/2016 14:10:18 11/18/2016 23:59:59 [facility] Outpatient [facility] [id number] 10/28/2016 00:00:00 10/28/2016 23:59:59 [facility] Outpatient [facility] [id number] 05/13/2016 12:54:53 05/13/2016 23:59:59 [facility] Outpatient [facility] Neurology [facility] [id number] 03/11/2016 00:00:00 03/11/2016 23:59:59 CLS Outpatient [facility] Neurology [facility] [id number] 10/28/2017 00:00:00 10/28/2017 23:59:59 CLS Outpatient [facility] [id number] 10/28/2017 00:00:00 10/28/2017 23:59:59 CLS Outpatient [facility] [id number] 10/27/2017 00:00:00 10/27/2017 23:59:59 CLS Outpatient [facility] [id number] 08/26/2017 00:00:00 08/26/2017 23:59:59 CLS Outpatient [facility] Neurology [facility] [id number] 08/13/2017 00:00:00 08/13/2017 23:59:59 CLS Outpatient [facility] [id number] 08/01/2017 14:48:23 08/01/2017 23:59:59 CLS Outpatient [facility] [id number] 06/20/2017 00:00:00 06/20/2017 23:59:59 CLS Outpatient [facility] [id number] 03/21/2017 14:57:21 Document Registration [id number] 01/30/2017 08:18:14 Document Registration [id number] 11/18/2016 14:10:18 Document Registration [id number] 05/13/2016 12:54:53 Document Registration [id number] 12/02/2017 15:21:41 12/02/2017 23:59:59 CLS Outpatient KD SANTAMARIA [facility] EXPUR [id number] 08/20/2017 19:54:01 08/20/2017 23:59:59 C[facility] URISHXR [id number] 08/20/2017 18:28:51 08/20/2017 23:59:59 CLS Outpatient KD SANTAMARIA [facility] EXPUR [id number] 08/06/2017 14:13:07 08/06/2017 23:59:59 CLS Out[facility] [place] HCOTXR [id number] 08/06/2017 12:31:47 08/06/2017 23:59:59 CLS Outpatient WESLEY ALLEN [facility] 901 [id number] 03/25/2017 08:39:28 03/25/2017 23:59:59 CLS Outpatient [facility] [id number] 03/24/2017 12:01:15 03/24/2017 23:59:59 CLS Outpatient CRISTIANA CAMP [facility] 90 [id number] 01/31/2017 09:40:01 01/31/2017 23:59:59 [id number] 12/03/2016 10:27:24 12/03/2016 23:59:59 [facility] [id number] 12/03/2016 10:19:00 12/03/2016 23:59:59 CLS Outpatient [facility] [id number] 11/29/2016 13:57:22 11/29/2016 23:59:59 CLS Outpatient [facility] [id number] 11/04/2016 13:53:09 11/04/2016 23:59:59 CLS Outpatient RADHA MONSALVE [facility] 901 [id number] 10/14/2016 15:06:17 10/14/2016 23:59:59 CLS Outpatient [facility] [id number] 10/14/2016 15:04:35 10/14/2016 23:59:59 CLS Outpatient [facility] [id number] 09/18/2016 11:32:31 09/18/2016 23:59:59 CLS Outpatient WESLEY ALLEN [facility] 90 [id number] 04/18/2016 10:50:24 04/18/2016 23:59:59 CLS Outpatient WESLEY ALLEN [place] [address] [id number] 03/22/2016 14:24:57 03/22/2016 23:59:59 CLS Outpatient CRISTIANA CAMP [facility] 901 [id number] 03/19/2016 10:02:42 03/19/2016 23:59:59 CLS Outpatient [facility] 901 [id number] 01/09/2016 14:23:22 01/09/2016 23:59:59 CLS Outpatient [facility] 901 [id number] 01/03/2016 16:20:00 01/03/2016 23:59:59 CLS Outpatient [facility] 90 [id number] 01/03/2016 15:53:15 01/03/2016 23:59:59 CLS Outpatient CRISTIANA CAMP [facility] 90 [id number] 01/03/2016 14:07:08 01/03/2016 23:59:59 CLS Outpatient [facility] [id number] 11/15/2015 12:20:43 11/15/2015 23:59:59 CLS Outpatient FERMIN MICHAELS [facility] [id number] 11/09/2015 12:41:19 11/09/2015 23:59:59 CLS Outpatient FERMIN MICHAELS [facility] [id number] 08/31/2015 12:01:07 08/31/2015 23:59:59 CLS Outpatient [facility] 90 [id number] 08/31/2015 10:58:39 08/31/2015 23:59:59 CLS Outpatient CRISTIANA CAMP [place] [address] [id number] 07/10/2015 10:57:55 07/10/2015 23:59:59 CLS Outpatient [place] [address] [id number] 07/04/2015 14:49:26 07/04/2015 23:59:59 CLS Outpatient JOAQUIN MINER [facility] [id number] 11/03/2015 11:46:25 Document Registration [id number] 08/08/2017 11:34:41 08/08/2017 23:59:00 [id number]/21/2017 15:27:14 03/21/2017 23:59:00 [id number] 11/18/2016 14:43:46 11/18/2016 23:59:00 DIS Outpatient MHATRE, [facility] [id number] 12/12/2015 16:49:36 12/12/2015 23:59:00 DIS Outpatient MHATRE, [facility] FMWLAB [id number] 09/11/2015 15:52:48 09/11/2015 23:59:00 DIS Outpatient MHATRE, [facility] [id number] 06/06/2015 15:15:00 06/06/2015 23:59:00 DIS Outpatient MHATRE, [facility] [id number] 01/09/2015 15:24:50 01/09/2015 23:59:00 DIS Outpatient MHATRE, [facility] [id number] 12/29/2014 13:57:53 12/29/2014 23:59:00 DIS Outpatient ABI ALCALA MD [facility] [id number] 07/07/2014 13:38:35 07/07/2014 23:59:00 DIS Outpatient OMEROSHEKHAR [facility] [id number] 05/24/2014 11:19:21 05/24/2014 23:59:00 DIS Outpatient SMITA RINALDI [facility] [id number] 05/04/2014 15:47:29 05/04/2014 23:59:00 DIS Outpatient MHATRE, [facility] [id number] 03/28/2014 10:37:31 03/28/2014 23:59:00 DIS Outpatient OMEROHOLLY Kum[facility] [id number] 02/23/2014 13:36:38 02/23/2014 23:59:00 DIS [id number] 02/02/2014 15:13:11 02/02/2014 23:59:00 DIS Outpatient IBETH BENZ [facility] [id number] 01/26/2014 11:40:43 01/26/2014 23:59:00 DIS Outpatient IBETH BENZ [facility] [id number] 12/29/2013 15:32:49 12/29/2013 23:59:00 DIS Outpatient ARABELLA CURTIS [facility] [id number] 11/06/2017 07:15:58 ACT Document Registration [id number] 12/14/2017 17:38:00 Document Registration
[2017-12-14 21:30] VITALS: BP 123/67
[2017-12-14] MEDS: NS IV 1000 ML 1,000 ML IV SCH (21:42)
[2017-12-14] MEDS: CATHETER FLUSH 10 ML SYR IV SCH ×2 (21:43→21:48)
[2017-12-14] MEDS ORDERED: CATHETER FLUSH 10 ML SYR IV PRN (21:45)
[2017-12-15] VITALS: BP 97/57
[2017-12-15 03:57] VITALS: BP 124/75
[2017-12-15 07:46] VITALS: BP 128/68
[2017-12-15] MEDS ORDERED: LORA10TA76 PO (08:35)
[2017-12-15] MEDS ORDERED: FLUT9.9S NS (08:35)
[2017-12-15] MEDS ORDERED: FERR-84 PO (08:42)
[2017-12-15] MEDS ORDERED: LACT1CAP62 PO (08:42)
[2017-12-15] MEDS ORDERED: CLON0.5T3 PO (08:42)
[2017-12-15] MEDS ORDERED: MULT-35 PO (08:42)
[2017-12-15] MEDS ORDERED: CALC-6 PO (08:42)
[2017-12-15] MEDS ORDERED: OMEG10005 PO (08:42)
[2017-12-15] MEDS ORDERED: CHOL20003 PO (08:46)
[2017-12-15] MEDS: NS IV 1000 ML 1,000 ML IV SCH ×2 (10:25→23:53)
[2017-12-15 11:54] VITALS: BP 129/60
--- NOTE | 2017-12-15 13:24 | History & Physical-Hospitalist ---
History of Present Illness HPI/Chief Complaint Pt is a 77yoCF with a PMH of HTN, ADHD, and seizure disorder who presented to the ER due to AMS. She reports that she was driving from [place] to [place], [place] to see her son for Mother's Day when she got lost. She normally is very good at reading maps and does not get lost often but that she could not remember where she was going and could not read the map. She called her son at 1100 to ask for directions and per his reported sounded normal. She believes she was in [place] at that time. She does not remember much after this. The next thing she remembers was being approached by a person from roadside assistance to see if she was ok. Her car was on the side of the road. She does not believe she passed out. She denies missing and of her seizure medicines. She has not had a seizure in years. Today she feels much better but still thinks she is off from her baseline. She was found to have a UTI and was admitted for IV abx. Of note 1 week ago she did have persistent diarrhea. She denied any dysuria. Source: patient Date Seen 12/15/17 Time Seen by Provider: 10:30 Attending Physician Jacob Morrell MD PCP No,Local Physician Referring Physician Date of Admission December 14, 2017 at 8:30 pm Home Medications & Allergies Home Medications Reviewed patient Home Medication Reconciliation performed by pharmacy medication reconciliations pipe testing technician and/or nursing. Patients Allergies have been reviewed. Allergies Allergies Coded Allergies Penicillins (Verified Allergy, Unknown, RASH, 12/14/17) Past Vumqifr-Izolgg-Rxkvoe Hx Past Med/Social Hx: Reviewed Nursing Past Med/Soc Hx Patient Social History Alcohol Use: Denies Use Recreational Drug Use: No Smoking Status: Never a Smoker Type Used: Cigarettes Physical Abuse Screen: No Sexual Abuse: No Recent Foreign Travel: No Contact w/other who traveled: No Recent Infectious Disease Expo: No Seasonal Allergies Seasonal Allergies: Yes Past Medical History Surgeries: Appendectomy, Section Cardiac: Hypertension Gastrointestinal: Gastroesophageal Reflux Psychosocial: ADD/ADHD History of Blood Disorders: No Family History Reviewed Nursing Family Hx No Pertinent Family Hx Review of Systems Constitutional: No chills; fever, weakness EENTM: No blurred vision, No double vision, No nose congestion, No throat pain Respiratory: No cough, No dyspnea on exertion, No short of breath Cardiovascular: No chest pain, No edema, No palpitations Gastrointestinal: No abdominal pain, No constipation; diarrhea (1 week ago), nausea (1 week ago), vomiting (1 week ago) Genitourinary: No dysuria; frequency; No incontinence Musculoskeletal: No joint pain, No muscle pain Skin: No lesions, No rash Psychiatric/Neurological: Denies Headache, Denies Numbness, Denies Tingling All Other Systems Reviewed Negative Unless Noted: Yes (Negative excepted noted.) Physical Exam Physical Exam Vital Signs Vital Signs - First Documented 12/14/17 12/14/17 17:35 21:04 Temp 100.8 Pulse 93 Resp 16 B/P (MAP) 108/39 (62) Pulse Ox 94 O2 Delivery Room Air Capillary Refill : Less Than 3 Seconds General Appearance: No Apparent Distress, WD/WN HEENT: PERRL/EOMI, Moist Mucous Membranes Neck: Non Tender, Supple Respiratory: Lungs Clear, No Respiratory Distress Cardiovascular: Regular Rate, Rhythm, No Murmur Gastrointestinal: Normal Bowel Sounds, Non Tender, Soft Extremity: Normal Capillary Refill, No Calf Tenderness Neurologic/Psychiatric: Alert, Oriented x3, Normal Mood/Affect Skin: Normal Color, Warm/Dry Results Results/Procedures Labs Laboratory Tests 12/14/17 17:40 Patient resulted labs reviewed. Imaging: Reviewed Imaging Report Assessment/Plan Admission Diagnosis Sepsis due to UTI Admission Status: Inpatient Order (span 2 midnights) Reason for Inpatient Admission: IV abx Diagnosis/Problems Diagnosis/Problems (1) Urinary tract infection Status: Acute Assessment & Plan: Met sepsis criteria on arrival (Fever and leukocytosis) Lactic normal and not hypotensive- no need for 30cc/kg bolus Continue on Rocephin Await cultures Delirium resolved Qualifiers: Urinary tract infection type: acute cystitis Hematuria presence: without hematuria Qualified Codes: N30.00 - Acute cystitis without hematuria (2) HTN (hypertension) Status: Chronic Assessment & Plan: Mildly hypotensive on arrival Improving, trend Qualifiers: Hypertension type: essential hypertension Qualified Codes: I10 - Essential (primary) hypertension (3) ADHD Status: Chronic Assessment & Plan: Takes Vyvanse at home Qualifiers: Attention deficit-hyperactivity disorder type: unspecified Qualified Codes : F90.9 - Attention-deficit hyperactivity disorder, unspecified type (4) Seizure disorder Assessment & Plan: Continue home meds Clinical Quality Measures DVT/VTE Risk/Contraindication: Risk Factor Score Per Nursin RFS Level Per Nursing on Admit: 3=High RAEGAN HENRY MD December 15, 2017 1:23 pm
[2017-12-15] MEDS: CATHETER FLUSH 10 ML SYR IV SCH ×2 (13:31→21:38)
[2017-12-15] MEDS ORDERED: NON-FORMULARY MEDICATION 1 EA EA (Fluticasone Propionate (Flonase Allergy Relief) 2 SPRAY) NS PRN (13:45)
[2017-12-15] MEDS ORDERED: NON-FORMULARY MEDICATION 1 EA EA (Loratadine (Claritin) 10 MG) PO PRN (13:45)
[2017-12-15] MEDS ORDERED: FLUTICASONE NASAL SPRAY (FLONASE) 16 GM BTL NS PRN (14:00)
[2017-12-15] MEDS ORDERED: LORATADINE (CLARITIN) 10 MG TAB PO PRN (14:00)
--- NOTE | 2017-12-15 16:02 | Physical Therapy Evaluation ---
PT Evaluation-General Medical Diagnosis Admission Date December 14, 2017 at 20:30 Medical Diagnosis: UTI/delerium Onset Date: December 14, 2017 Therapy Diagnosis Therapy Diagnosis: weakness Height/Weight Height (Feet): 5 Height (Inches): 6.00 Weight (Pounds): 160 Weight (Ounces): 0.0 Precautions Precautions/Isolations: Standard Precautions Weight Bear Status Right Lower Extremity: Right Weight Bearing/Tolerated Left Lower Extremity: Left Weight Bearing/Tolerated Referral Physician: Louie Reason for Referral: Evaluation/Treatment Medical History Pertinent Medical History: HTN Additional Medical History ADHD Current History Pt was driving to visit her son and became confused and unable to find her way to his house. She was pulled over on the side of the road by [employer]. Brought to ER and found to have UTI with delerium. Reviewed History: Yes Social History Home: Single Level Current Living Status: Alone Prior/Core FIM Prior Level of Function Functional Brick Measure 0=Not Assessed/NA 4=Minimal Assistance 1=Total Assistance 5=Supervision or Setup 2=Maximal Assistance 6=Modified Brick 3=Moderate Assistance 7=Complete Brick Bed Mobility: 7 Transfers (B,C,W/C) (FIM): 7 Gait: 7 Indep and active. Pt was driving from [place] to [place] to visit her son. PT Evaluation-Current Subjective Reports she is feeling much better. Reports she is clearer mentally but doesn' t remember all of what happened. No complaints. Reports she has been taking herself and her IV pole to the bathroom. Pain Numeric Pain Scale: 0-No Pain Location: No Pain Reported Objective Patient Orientation: Person, Place, Time, Situation Problem Solving: Good Attachments: IV ROM/Strength ROM Lower Extremities WNL Strength Lower Extremities WNL Integumentary/Posture Integumentary intact Bowel Incontinence: No Bladder Incontinence: No Posture normal and symmetrical Neuromuscular (Tone, Coordination, Reflexes) No noted functional deficits Sensory Vision: Functional Hearing: Functional Hand Dominance: Right Sensation Right Lower Extremit: Intact Sensation Left Lower Extremity: Intact Transfers Functional Brick Measure 0=Not Assessed/NA 4=Minimal Assistance 1=Total Assistance 5=Supervision or Setup 2=Maximal Assistance 6=Modified Brick 3=Moderate Assistance 7=Complete Brick Transfers (B, C, W/C) (FIM): 7 Pt was able to get in/out of bed and transfer without assist or safety concern. Gait Mode of Locomotion: Walk Anticipated Mode of Locomotion: Walk Gait (FIM): 7 Distance: 400 ft Gait Assistive Device: None Comments/Gait Description Pt walked in her room and in the cherry without assist or without LOB episode. Safe and steady. Balance Sitting Static: Good Sitting Dynamic: Good Standing Static: Good Standing Dynamic: Good Treatment Education on frequent walking while here to maintain functional strength. Assessment/Needs Pt is indep and safe with all mobility. Recommend frequent walking. Skilled PT is not indicated at this time. Rehab Potential: Good PT Plan Treatment/Plan Treatment Plan: Discontinue PT Treatment Plan: Other Treatment Duration: December 15, 2017 Frequency: 1 visit only Estimated Hrs Per Day: Other Patient and/or Family Agrees t: Yes Informed pt and physician of discontinuing PT Safety Risks/Education Patient Education: Safety Issues Teaching Recipient: Patient Teaching Methods: Discussion Response to Teaching: Verbalize Understanding Discharge Recommendations Plan DC PT Time/GCodes Time In: 1430 Time Out: 1445 Total Billed Treatment Time: 15 Total Billed Treatment visit EVL 15 DANIELA MARCUS PT December 15, 2017 16:02
[2017-12-15 16:45] VITALS: BP 124/68
[2017-12-15 20:30] VITALS: BP 157/67
[2017-12-15] MEDS ORDERED: NON-FORMULARY MEDICATION 1 EA EA (Olanzapine 5 MG) PO SCH (21:00)
[2017-12-15] MEDS ORDERED: clonazePAM 0.5 MG (KlonoPIN) TAB PO SCH (21:00)
[2017-12-15] MEDS ORDERED: NON-FORMULARY MEDICATION 1 EA EA (Lactobacillus Acidophilus (Probiotic) 1 CAP) PO SCH (21:00)
[2017-12-15] MEDS ORDERED: cefTRIAXone 1 GM/NS 50 ML IVPB IV SCH ×2 (21:00)
[2017-12-15] MEDS ORDERED: OLANZapine 5 MG (ZyPREXA) TAB PO SCH (21:00)
[2017-12-15] MEDS ORDERED: DIVALPROEX EXT RELEASE 500 MG (DEPAKOTE ER) TAB PO SCH (21:00)
[2017-12-15] MEDS ORDERED: NON-FORMULARY MEDICATION 1 EA EA (Divalproex Sodium (Divalproex Sodium ER) 500 MG) PO SCH (21:00)
[2017-12-15] MEDS: LACTOBACILLUS Acidoph/Bulgar (LACTINEX/FLORANEX) TAB PO SCH (21:38)
[2017-12-16] VITALS: BP 132/72
[2017-12-16 05:40] LABS: BASOPHILS # (AUTO) 0.1 10^3/uL (0.0-0.1); BASOPHILS % (AUTO) 1 % (0-10); EOSINOPHILS # (AUTO) 0.3 10^3/uL (0.0-0.3); EOSINOPHILS % (AUTO) 3 % (0-10); HEMATOCRIT 36 % (35-52); HEMOGLOBIN 12.1 G/DL (11.5-16.0); LYMPHOCYTES # (AUTO) 1.7 X 10^3 (1.0-4.0); LYMPHOCYTES % (AUTO) 20 % (12-44); MEAN CORPUSCULAR HEMOGLOBIN 29 PG (25-34); MEAN CORPUSCULAR HGB CONC 34 G/DL (32-36); MEAN CORPUSCULAR VOLUME 85 FL (80-99); MEAN PLATELET VOLUME 9.7 FL (7.4-10.4); MONOCYTES # (AUTO) 0.9 X 10^3 (0.0-1.0); MONOCYTES % (AUTO) 10 % (0-12); NEUTROPHILS # (AUTO) 5.7 X 10^3 (1.8-7.8); NEUTROPHILS % (AUTO) 67 % (42-75); PLATELET COUNT 330 10^3/uL (130-400); RED BLOOD COUNT 4.23 10^6/uL (4.35-5.85); RED CELL DISTRIBUTION WIDTH 14.6 % (10.0-14.5); WHITE BLOOD COUNT 8.5 10^3/uL (4.3-11.0)
[2017-12-16 05:56] LABS: BUN/CREATININE RATIO 14; CARBON DIOXIDE 21 MMOL/L (21-32); CHLORIDE 111 MMOL/L (98-107); CREATININE SERUM 0.76 MG/DL (0.60-1.30); GFR ESTIMATED > 60; GLUCOSE 106 MG/DL (70-105); POTASSIUM 4.1 MMOL/L (3.6-5.0); SODIUM 142 MMOL/L (135-145)
[2017-12-16] MEDS: CATHETER FLUSH 10 ML SYR IV SCH (06:23)
[2017-12-16] MEDS ORDERED: MULTIVIT W/MINERALS TAB (THERAGRAN M) PO SCH (07:00)
[2017-12-16] MEDS: LACTOBACILLUS Acidoph/Bulgar (LACTINEX/FLORANEX) TAB PO SCH (08:19)
[2017-12-16 08:30] VITALS: BP 156/67
[2017-12-16] MEDS ORDERED: VILAZODONE 40 MG (VIIBRYD) TABLET (NON-FORMULARY) PO SCH (09:00)
[2017-12-16] MEDS ORDERED: NON-FORMULARY MEDICATION 1 EA EA (Multivitamin (Daily Multiple Vitamin) 1 TAB) PO SCH (09:00)
[2017-12-16] MEDS ORDERED: CEPH-507 PO (10:53)
--- NOTE | 2017-12-16 10:54 | Discharge Inst-Simple/Standard ---
Discharge Inst-Standard Discharge Medications New, Converted or Re-Newed RX: Transmitted to Pharmacy Patient Instructions/Follow Up Plan of Care/Instructions/FU: Please continue to take your antibiotics as written. Please follow up with your PCP within 1 week. Activity as Tolerated: Yes Discharge Diet: Cardiac Diet Return to The Hospital For: Worsening symptoms, fevers, confusion, or if you feel you are getting worse. RAEGAN HENRY MD December 16, 2017 10:54 am
[2017-12-16] MEDS ORDERED: cefTRIAXone 1 GM/NS 50 ML IVPB IV SCH ×2 (11:00)
--- NOTE | 2017-12-16 12:02 | Occ Therapy Progress Note ---
Therapy Progress Note Order received for OT eval and treat. Chart review completed. Pt sitting EOB, states she will be discharging soon. Pt states she has been up ad jose in room and has already cleaned up and donned gown and underwear without assistance this morning. States she has also been getting up to restroom without assist. Pt denied needs, states she has no concerns regarding ADLs, mobility or home safety. Pt sitting EOB with all needs met. RN confirms that pt will be discharged and has been getting up in room without difficulty. 1, visit-DC PRISCA GONZALEZ OT December 16, 2017 12:02
--- NOTE | 2017-12-16 15:09 | Discharge Summary-Hospitalist ---
Diagnosis/Chief Complaint Date of Admission December 14, 2017 at 20:30 Date of Discharge December 16, 2017 at 12:25 Discharge Date: December 16, 2017 Admission Diagnosis Sepsis due to UTI Discharge Diagnosis (1) Urinary tract infection Status: Acute Assessment & Plan: Met sepsis criteria on arrival (Fever and leukocytosis) Lactic normal and not hypotensive- no need for 30cc/kg bolus Continue on Rocephin Await cultures Delirium resolved (2) HTN (hypertension) Status: Chronic Assessment & Plan: Mildly hypotensive on arrival Improving, trend (3) ADHD Status: Chronic Assessment & Plan: Takes Vyvanse at home (4) Seizure disorder Assessment & Plan: Continue home meds Discharge Summary Discharge Physical Exam Allergies: Coded Allergies: Penicillins (Verified Allergy, Unknown, RASH, 12/14/17) Vitals & I&Os Vital Signs Date Time Temp Pulse Resp B/P (MAP) Pulse Ox O2 Delivery O2 Flow Rate FiO2 12/16/17 12:20 12/16/17 08:30 97.5 81 20 97 Room Air General Appearance: Alert, Oriented X3 Respiratory: Clear to Auscultation Cardiovascular: Regular Rate Psych/Mental Status: Mental Status NL Hospital Course Pt presented with AMS and sepsis due to UTI. She was started on Rocephin and improved. Her symptoms resolved completely and she was discharged in stable and improved condition on Keflex. She is to follow up with her PCP in [place] in 1 week. Labs (last 24 hrs) Microbiology 12/14/17 Blood Culture - Preliminary, Resulted No growth 12/14/17 Urine Culture - Final, Complete Nonenterococcus (Chains Cocci) Patient resulted labs reviewed. Imaging: Reviewed Imaging Report Discussion & Recommendations Discharge Planning: >30 minutes discharge planning Discharge Home Medications: Active Scripts Active Keflex (Cephalexin) 500 Mg Capsule 500 Mg PO BID 5 Days Reported Vitamin D3 (Cholecalciferol (Vitamin D3)) 2,000 Unit Capsule 2,000 Unit PO DAILY Clonazepam 0.5 Mg Tablet 0.5 Mg PO HS LAST FILLED #30 10-27-17 Probiotic (Lactobacillus Acidophilus) 1 Each Capsule 1 Cap PO BID Iron (Ferrous Sulfate) 325 Mg Tablet 325 Mg PO DAILY [place]-3 ([place]-3 Fatty Acids) 1,000 Mg Capsule 1,000 Mg PO DAILY Daily Multiple Vitamin (Multivitamin) 1 Each Tablet 1 Tab PO DAILY Calcium 600 + Vit D 200 Tablet (Calcium Carbonate/Vitamin D3) 1 Each Tablet 1 Tab PO DAILY Claritin (Loratadine) 10 Mg Tablet 10 Mg PO DAILY PRN Flonase Allergy Relief (Fluticasone Propionate) 9.9 Ml [place].susp 2 [place] NS DAILY PRN Enalapril Maleate 5 Mg Tablet 5 Mg PO HS Divalproex Sodium ER (Divalproex Sodium) 500 Mg Tab.er.24h 500 Mg PO HS Olanzapine 5 Mg Tablet 5 Mg PO HS Viibryd (Vilazodone Hydrochloride) 40 Mg Tablet 40 Mg PO DAILY Vyvanse (Lisdexamfetamine Dimesylate) 70 Mg Capsule 70 Mg PO DAILY Instructions to patient/family Please see electronic discharge instructions given to patient. Clinical Quality Measures DVT/VTE Risk/Contraindication: Risk Factor Score Per Nursin RFS Level Per Nursing on Admit: 3=High Problem Qualifiers (1) Urinary tract infection: Urinary tract infection type: acute cystitis Hematuria presence: without hematuria Qualified Codes: N30.00 - Acute cystitis without hematuria (2) HTN (hypertension): Hypertension type: essential hypertension Qualified Codes: I10 - Essential ( primary) hypertension (3) ADHD: Attention deficit-hyperactivity disorder type: unspecified Qualified Codes: F90.9 - Attention-deficit hyperactivity disorder, unspecified type RAEGAN HENRY MD December 16, 2017 15:09
== END 2017-12-16 12:25 | disposition home or self-care (01) | DRG 872 ==
LOC: ER 17:24 → 4TH 20:30
PROVIDERS: ADMIT Internal Medicine; ATTEND Internal Medicine
DX: A41.9 Sepsis, unspecified organism (principal); N30.00 Acute cystitis without hematuria; R41.0 Disorientation, unspecified; I10 Essential (primary) hypertension; F90.9 Attention-deficit hyperactivity disorder, unspecified type; K21.9 Gastro-esophageal reflux disease without esophagitis; G40.909 Epilepsy, unspecified, not intractable, without status epilepticus; J30.2 Other seasonal allergic rhinitis
CPT/HCPCS: 36415; 70450; 71046; 80048; 80053; 81000; 82962; 83605; 84484; 85007; 85025; 85027; 85610; 85730; 87040; 87088; 93005; 96374